=== PATIENT | female | born 1945 | race Two or more races ===

== ENCOUNTER 2018-08-16 13:45 | Outpatient (CLI) | payer OTHER | END 2018-08-16 13:59 | disposition home or self-care (01) | LOC: MAMO-SONO 13:45 | DX: Z12.31 Encounter for screening mammogram for malignant neoplasm of breast (principal); Z87.898 Personal history of other specified conditions; N64.89 Other specified disorders of breast; J45.31 Mild persistent asthma with (acute) exacerbation; J45.909 Unspecified asthma, uncomplicated; Z68.26 Body mass index [BMI] 26.0-26.9, adult; R06.02 Shortness of breath; M81.0 Age-related osteoporosis without current pathological fracture; Z12.11 Encounter for screening for malignant neoplasm of colon; Z13.820 Encounter for screening for osteoporosis ==

== ENCOUNTER 2018-08-16 14:47 | Outpatient (CLI) | payer OTHER | END 2018-08-16 14:49 | disposition home or self-care (01) | LOC: NUCLEAR 14:47 | DX: M81.0 Age-related osteoporosis without current pathological fracture (principal) ==

== ENCOUNTER 2018-12-02 07:40 | Outpatient (CLI) | payer OTHER | END 2018-12-02 08:20 | disposition home or self-care (01) | LOC: NUCLEAR 07:40 | DX: I87.2 Venous insufficiency (chronic) (peripheral) (principal) ==

== ENCOUNTER 2019-11-20 21:36 | Emergency (ER) | payer OTHER ==
[~2019-11-20] VITALS: Ht 165.1 cm; Wt 64.9 kg
[2019-11-20] MEDS ORDERED: SINGULAIR4 M1 (22:21)
[2019-11-20] MEDS ORDERED: SIMVASTATIN1 GM (22:21)
[2019-11-20] MEDS ORDERED: COZAAR25 MG (22:21)
[2019-11-21] MEDS ORDERED: PROVENTIL HFA6.7 GM IH (02:37)
== END 2019-11-21 02:46 ==
LOC: ER 21:36
DX: J06.9 Acute upper respiratory infection, unspecified (principal); J45.909 Unspecified asthma, uncomplicated; Z20.828 Contact with and (suspected) exposure to other viral communicable diseases

== ENCOUNTER 2019-12-24 08:04 | Outpatient (CLI) | payer OTHER ==
[~2019-12-24 08:04] MED LIST: COZAAR25 MG; PROVENTIL HFA6.7 GM IH; SIMVASTATIN1 GM; SINGULAIR4 M1
== END 2019-12-24 15:00 | disposition home or self-care (01) ==
LOC: RAD 08:04
PROVIDERS: ATTEND Internal Medicine
DX: J45.998 Other asthma (principal); Z68.26 Body mass index [BMI] 26.0-26.9, adult; R06.02 Shortness of breath; J45.31 Mild persistent asthma with (acute) exacerbation; Z79.82 Long term (current) use of aspirin; J45.901 Unspecified asthma with (acute) exacerbation; M22.41 Chondromalacia patellae, right knee; M81.0 Age-related osteoporosis without current pathological fracture; Z12.11 Encounter for screening for malignant neoplasm of colon; Z13.820 Encounter for screening for osteoporosis; Z12.31 Encounter for screening mammogram for malignant neoplasm of breast

== ENCOUNTER 2020-05-03 08:11 | Outpatient (CLI) | payer OTHER | END 2020-05-03 08:18 | disposition home or self-care (01) | LOC: MAMO-SONO 08:11 | PROVIDERS: ATTEND Internal Medicine | DX: Z12.31 Encounter for screening mammogram for malignant neoplasm of breast (principal); N64.59 Other signs and symptoms in breast ==

== ENCOUNTER 2020-05-14 12:26 | Outpatient (CLI) | payer OTHER | END 2020-05-14 13:43 | disposition home or self-care (01) | LOC: NUCLEAR 12:26 | PROVIDERS: ATTEND Internal Medicine | DX: M81.0 Age-related osteoporosis without current pathological fracture (principal); M22.41 Chondromalacia patellae, right knee ==

== ENCOUNTER 2020-08-26 17:26 | Emergency (ER) | payer OTHER ==
[~2020-08-26] VITALS: Ht 157.5 cm; Wt 54.4 kg
== END 2020-08-26 20:41 | disposition home or self-care (01) ==
LOC: ER 17:26
DX: I16.0 Hypertensive urgency (principal); I10 Essential (primary) hypertension